=== PATIENT | female | born 2000 | race Caucasian/White ===

== ENCOUNTER 2024-08-14 11:27 | Emergency (ER) | payer MEDICAID, SELFPAY ==
[2024-08-14 11:28] VITALS: BMI 37.4
[2024-08-14 11:44] VITALS: BP 117/81; PULSE 117; RESP 18; TEMP 37.8; O2SAT 97; BMI 38.0
--- NOTE | 2024-08-14 11:53 | EDNOTE_ITS ---
Upper Respiratory Inf. RME/HPI General Chief Complaint: Dental/Oral/Throat Stated Complaint: Swelling of Tonsils, SOB, fever Time Seen by Provider: 08/14/24 11:31 Arrival date/time: 08/14/24 11:27 23-year-old female with no significant medical problems presents emergency department complaints of sore throat and fever patient for symptoms ongoing for last couple of days patient ports no chest pain or shortness of there are no other associated symptoms or aggravating factors no other modifying factors, patient denies taking medication before coming to ER today Limitations: no limitations Related Data Home Medications ?Medication ?Instructions ?Recorded ?Confirmed amoxicillin 875 mg-potassium 1 tab PO BID 08/07/20 08/07/20 clavulanate 125 mg tablet (Augmentin) Previous Rx's ?Medication ?Instructions ?Recorded ibuprofen 600 mg tablet 600 mg PO QID PRN pain #30 tabs 05/13/21 clindamycin HCl 150 mg capsule 450 mg (3 x 150 mg) PO TID 7 days 08/14/24 #63 caps ibuprofen 800 mg tablet 800 mg PO TID PRN pain #30 tabs 08/14/24 prednisone 10 mg tablet 30 mg (3 x 10 mg) PO BID 3 days 08/14/24 #18 tabs Allergies Allergy/AdvReac Type Severity Reaction Status Date / Time diphenhydramine Allergy Severe Anaphylaxis Verified 10/04/23 21:39 [From Benadryl Allergy] [place] And Derivatives Allergy Verified 04/08/23 06:27 Review of Systems Review of Systems Systems Reviewed: All systems reviewed, normal except as documented Constitutional Constitutional: Reports system reviewed and no additional complaints, except as documented, Denies fever(s) and Reports headache(s) Eyes Eyes: Reports system reviewed and no additional complaints, except as documented and Denies blurry vision ENT Ears, Nose, Mouth, and Throat: Reports system reviewed and no additional complaints, except as documented, Reports headache(s), Reports nasal congestion, Reports nasal discharge, Reports sore throat and Reports throat swelling Cardiovascular Cardiovascular: Reports system reviewed and no additional complaints, except as documented, Denies chest pain and Denies dyspnea Respiratory Respiratory: Reports system reviewed and no additional complaints, except as documented, Denies chest congestion, Denies cough and Denies dyspnea Gastrointestinal Gastrointestinal: Reports system reviewed and no additional complaints, except as documented and Denies abdominal pain Integumentary/Breasts Skin/Breast: Reports system reviewed and no additional complaints, except as documented and Denies rash Neurologic Neurologic: Reports system reviewed and no additional complaints, except as documented, Reports as per HPI and Reports headache(s) Allergic/Immunologic Allergic/Immunologic: Reports throat swelling Past Medical History Past Medical History CARDIAC: Negative Congestive Heart Failure RESPIRATORY: Negative Chronic Obstructive Pulmonary Disease (COPD) GENITOURINARY: Negative Renal Disease ENDOCRINE: Negative Diabetes Mellitus Type 1 or Diabetes Mellitus Type 2 Social History SMOKING STATUS: Former smoker SUBSTANCE USE: marijuana ED Exam General Limitations: Present no limitations General appearance: Present alert and in no apparent distress Head Head exam: Present atraumatic, normocephalic and normal inspection Eye Eye exam: Present normal appearance, PERRL and EOMI; Absent conjunctival injection ENT ENT exam: Present mucous membranes moist and other Expanded ENT Exam Mouth exam: Absent trismus Throat exam: Present tonsillar erythema, tonsillomegaly and tonsillar exudate; Absent R peritonsillar mass or L peritonsillar mass Neck Neck exam: Present normal inspection, full ROM and trachea midline Chest Chest inspection: Present normal inspection and symmetric chest wall rise Respiratory Respiratory exam: Present normal lung sounds bilaterally; Absent respiratory distress Cardiovascular Cardiovascular exam: Present regular rate, normal rhythm and normal heart sounds Abdominal Exam Abdominal exam: Present soft and normal bowel sounds; Absent distention, tenderness, guarding, rebound, rigidity, Miller's sign or tenderness at McBurney's Point Abdominal tenderness: Absent RUQ Extremities Exam Extremities exam: Present normal inspection and full ROM Back Exam Back exam: Present normal inspection and full ROM Neurological Exam Neurological exam: Present alert, oriented X3 and CN II-XII intact Psychiatric Psychiatric exam: Present normal affect and normal mood Skin Skin exam: Present warm, dry, intact and normal color Course Quality Measures none Orders Category Date Time Status Dexamethasone Inj [Decadron Inj] Med 08/14/24 11:51 Discontinued 10 mg IM X1 ONE Ibuprofen Susp [Motrin Susp] Med 08/14/24 11:51 Discontinued 800 mg PO X1 ONE Lidocaine 1% 20 ml [Xylocaine 1% 20 ML] Med 08/14/24 11:51 Discontinued 2.1 ml INFL X1 ONE cefTRIAXone [Rocephin] Med 08/14/24 11:51 Discontinued 1,000 mg IM X1 ONE Vital Signs Vital signs: Vital Signs Temperature 100.0 F 08/14/24 11:44 Pulse Rate 117 H 08/14/24 11:44 Respiratory Rate 18 08/14/24 11:44 Blood Pressure 117/81 08/14/24 11:44 Pulse Oximetry (%) 97 08/14/24 11:44 Oxygen Delivery Method Room Air 08/14/24 11:44 O2 saturation 97% room air within normal limits Upper Respiratory Infection MDM Narrative MDM Narrative:: 23-year-old female with no significant medical problems presents emergency department complaints of sore throat and fever patient for symptoms ongoing for last couple of days patient reports no chest pain or shortness of there are no other associated symptoms or aggravating factors no other modifying factors, patient denies taking medication before coming to ER today On exam patient does not appear ill or toxic in no acute distress On exam patient does have tonsillar erythema no evidence of peritonsillar abscess no discrete abscess noted Patient discharged home in no distress to follow-up with primary care doctor in the next 24 to 48 hours and for any worsening symptoms to return to the ER immediately Patient data External records reviewed:: [facility] previous records Clinical information provided by:: patient Social determinants that could affect healthcare access:: none Patient has the following chronic illnesses:: None How is presenting disease/condition affected by chronic disease/condition?: no chronic disease Evaluation data The following diagnostics were reviewed and interpreted by me:: other (specify) (N/A) Lab and/or radiology exams considered but not ordered:: Consider not ordered Interpretation Summary: N/A Medications / Prescriptions Medications or Prescriptions considered but not ordered:: Given Medication administrations:: Medication Administration History Discontinued Medications Ceftriaxone Sodium (Ceftriaxone Sod Inj 1,000 Mg Vial) 1,000 mg IM X1 ONE Stop: 08/14/24 11:52 Last Admin: 08/14/24 12:04 Dose: 1,000 mg Documented By: AJIT Dexamethasone Sodium Phosphate (Dexamethasone Sod Phos Inj 10 Mg/Ml Vial) 10 mg IM X1 ONE Stop: 08/14/24 11:52 Last Admin: 08/14/24 12:02 Dose: 10 mg Documented By: AJIT Ibuprofen (Ibuprofen Susp 100 Mg/5 Ml Udc) 800 mg PO X1 ONE Stop: 08/14/24 11:52 Last Admin: 08/14/24 11:59 Dose: 800 mg Documented By: AJIT Lidocaine HCl (Lidocaine Hcl 1% 20 Ml Vial) 2.1 ml INFL X1 ONE Stop: 08/14/24 11:52 Last Admin: 08/14/24 12:04 Dose: 2.1 ml Documented By: RD Given Consultations Consultation(s) initiated? (list below): No Diagnosis Upper Respiratory Differential Diagnosis: upper respiratory infection, otitis media, sinusitis, viral infection, bronchitis and pharyngitis Most likely diagnosis given after review of the tests above:: Viral illness Admission Indicated Admission indicated?: not indicated Admission Request Was there a request for admission?: No Disposition Plan Disposition Plan: Discharge Discharge Attestation Discharge Attestation: The patient and all family members were given an opportunity to ask questions and understood the discharge instructions. Discharge instructions specifically effects, indications for sooner follow up or return to the emergency department, and the expected course of current diagnosis. Patient condition: Stable Discharge Plan Plan Patient Disposition: HOME (Self Care) Disposition Comment: Stable Prescriptions/Referrals Prescriptions/Med Rec: New prednisone 10 mg tablet 30 mg PO BID 3 Days Qty: 18 0RF ibuprofen 800 mg tablet 800 mg PO TID PRN (Reason: pain) Qty: 30 0RF clindamycin HCl 150 mg capsule 450 mg PO TID 7 Days Qty: 63 0RF No Action ibuprofen 600 mg tablet 600 mg PO QID PRN (Reason: pain) Qty: 30 0RF amoxicillin-pot clavulanate [Augmentin] 875-125 mg Tablet 1 tab PO BID Problem List Clinical Impression: Acute tonsillitis Patient/Caregiver Discharge Instructions Education Materials: ED Tonsillitis (Child) Additional Instructions: Please return in 2 days for recheck for worsening symptoms or concerns return immediately Print Language: [place] Stand Alone Forms: Isabel Award Info., Patient Portal Info Letter PA/JUDITH Supervising Physician JONAH/JUDITH Supervising Physician: Dr [email or web address]
[2024-08-14] MEDS: IBUPROFEN SUSP 100 MG/5 ML UDC 800 MG PO (11:59)
[2024-08-14] MEDS: DEXAMETHASONE SOD PHOS INJ 10 MG/ML VIAL IM (12:02)
[2024-08-14] MEDS: LIDOCAINE HCL 1% 20 ML VIAL 2.1 ML INFL (12:04)
[2024-08-14] MEDS: cefTRIAXone SOD INJ 1,000 MG VIAL 1000 MG IM (12:04)
== END 2024-08-14 12:08 | disposition home or self-care (01) ==
LOC: SERX 12:15
PROVIDERS: Emergency Provider Emergency Medicine
DX: J03.90 Acute tonsillitis, unspecified (principal); Z87.891 Personal history of nicotine dependence
CPT/HCPCS: 96372; 99283; J0696; J1100; J3490; A9270

== ENCOUNTER 2024-08-24 17:13 | Emergency (ER) | payer MEDICAID, SELFPAY ==
[2024-08-24 17:14] VITALS: BMI 37.4
[2024-08-24 17:45] VITALS: BP 111/80; PULSE 88; RESP 18; TEMP 36.9; O2SAT 99
--- NOTE | 2024-08-24 17:53 | XR_ITS ---
Examination: Complete OB ultrasound, less than 14 weeks, transabdominal Date and time of exam: August 24, 2024 1806 hours INDICATIONS: Positive test at home today, vaginal bleeding beginning 2 days ago Technique: Obstetrical ultrasound images less than 14 weeks performed via transabdominal imaging Findings: Uterus 5.7 x 3.1 x 4.7 cm No uterine mass or intrauterine gestation Right ovary 2.9 cm arterial flow Left ovary 3.1 cm arterial flow IMPRESSION: No uterine mass or intrauterine gestation
--- NOTE | 2024-08-24 17:53 | PD.EDRME ---
Rapid Medical Screening Exam E Arrival date/time: 08/24/24 17:13 23-year-old female with no known medical history presents to the emergency room with a chief complaint of vaginal spotting. Patient is currently 5 weeks and is a G1, P0. Patient states she found out she was yesterday. I have greeted and performed a focused initial assessment of this patient. A comprehensive ED assessment and evaluation of the patient, analysis of all test results, and completion of the medical decision making process will be conducted by additional ED providers. Chief Complaint: Vaginal Bleeding Vital signs: Vital Signs Temperature 98.5 F 08/24/24 17:45 Pulse Rate 88 08/24/24 17:45 Respiratory Rate 18 08/24/24 17:45 Blood Pressure 111/80 08/24/24 17:45 Pulse Oximetry (%) 99 08/24/24 17:45 Oxygen Delivery Method Room Air 08/24/24 17:45 Vital signs reviewed by provider: Yes
[2024-08-24 18:57] LABS: Basophils # (Auto) 0.1 Thou/mm3 (0.0-0.2); Basophils % (Auto) 1 % (0-2.5); Eosinophils % (Auto) 0 % (0-10); Hematocrit 37.5 % (36.0-46.0); Hemoglobin 12.4 g/dL (12.0-16.0); Immature Granulocytes % (Auto) 0 % (0-0); Immature Granulocytes Auto 0.05 Thou/mm3 (0.00-0.00); Lymphocytes % (Auto) 24 % (10-50); Mean Corpuscular HGB Conc 33.1 g/dl (31.0-37.0); Mean Corpuscular Hemoglobin 28.8 pg (25.0-35.0); Mean Corpuscular Volume 87 fL (80-100); Monocytes # (Auto) 0.8 Thou/mm3 (0.0-0.8); Monocytes % (Auto) 7 % (0-12); Neutrophils # (Auto) 8.4 Thou/mm3 (1.8-7.7); Neutrophils % (Auto) 68 % (37-80); Nucleated Red Blood Cell % 0 /100 WBC (0); Platelet Count 422 Thou/mm3 (140-440); RDW Standard Deviation 39.7 fL (36.4-46.3); Red Blood Count 4.31 Miln/mm3 (4.00-5.20); White Blood Count 12.4 Thou/mm3 (3.6-11.0)
[2024-08-24 19:08] LABS: Alanine Aminotransferase 22 U/L (10-49); Albumin, Serum 4.4 gm/dL (3.5-5.0); Albumin/Globulin Ratio 1.4 (1.2-2.2); Alkaline Phosphatase 68 U/L (46-116); Anion Gap 10 (7-16); Aspartate Amino Transferase 11 U/L (0-34); BUN/Creatinine Ratio 18 Ratio (12-20); Beta HCG,Quantitative 40 mIU/mL (<5.0); Bilirubin,Total 0.4 mg/dL (0.3-1.2); Blood Urea Nitrogen 11 mg/dL (9-23); Carbon Dioxide 23.4 mMol/L (20.0-31.0); Chloride 104 mMol/L (98-107); Creatinine (Component) 0.6 mg/dL (0.6-1.3); Globulin 3.2 gm/dL (2.3-3.5); Glucose 70 mg/dL (74-106); Osmolality,Calculated 271 (275-295); Potassium 3.6 mMol/L (3.4-5.1); Sodium 137 mMol/L (136-145); Total Protein 7.6 gm/dL (5.7-8.2); eGFR > 60 See Note
[2024-08-24 19:49] LABS: Collection Type, Urine Clean Catch
[2024-08-24 20:18] LABS: Bacteria,Urine Rare; Bilirubin,Urine Negative (Negative); Blood,Urine 1+ (Negative); Color,Urine Colorless (Lt Yel-Yel); Glucose, Urine Negative (Negative); Ketones,Urine Negative (Negative); Leukocyte Esterase,Urine Positive (Negative); Nitrite,Urine Negative (Negative); Protein,Urine Negative (Neg - Trace); RBC,Urine 5 /hpf (0-3); Specific Gravity,Urine 1.008 (1.001-1.035); Squamous Epithelial Cell,Urine 18 /hpf (0-5); Urobilinogen,Urine Negative mg/dL (0.0-1.0); WBC,Urine 18 /hpf (0-5)
[2024-08-24 20:23] LABS: Clarity,Urine Hazy (Clear/Hazy)
[2024-08-24 20:26] VITALS: BP 121/76; PULSE 85; RESP 18; TEMP 37.1; O2SAT 98
--- NOTE | 2024-08-24 21:15 | EDNOTE_ITS ---
ED OB Contraction Preg RMI/HPI General Chief complaint: Vaginal Bleeding Stated complaint: 5WKS AND SPOTTING Time Seen by Provider: 08/24/24 21:12 Arrival date/time: 08/24/24 17:13 23 year old female present to emergency room with c/o of vaginal bleeding/spotting today. pt report is around 5 weeks . LOCATION: suprapubic SEVERITY: Symptoms are described as being severe with limitations on activities of daily living QUALITY: Symptoms are described as being cramping CONTEXT: The patient is unable to identify any inciting events. DURATION/TIMING: The symptoms started approximately one day ago and have been waxing/waning but always present without ever completely resolving. ASSOCIATED SYMPTOMS: The patient is unable to identify any other associated symptoms. MODIFYING FACTORS: The patient is unable to identify any alleviating or aggravating symptoms. PERTINENT ROS: denies trauma, denies domestic violence, no dysuria or hematuria, no orthostatic symptoms, no nausea or vomiting, no fevers, no anorexia, no diarrhea or constipation REVIEW OF SYSTEMS: See History of Present Illness - with the exception of those mentioned in the history of present illness, all other systems reviewed and reported as negative GENERAL: In general the patient is awake, interactive, in an emergency department gurney. HEAD/EYES/EARS/NOSE/THROAT: normo-cephalic, atraumatic, mucus membranes are moist, anicteric, palpebral conjunctiva is pink, trachea is midline. CARDIOVASCULAR: regular rate and regular rhythm, no murmurs, heart sounds are not distant, strong pulses in all four extremities that are equal and symmetric bilateral upper and lower extremities, normal capillary refill. CHEST/PULMONARY: normal chest rise and fall, good air movement, clear to auscultation bilaterally, normal inspiratory to expiratory ratios without evidence of respiratory distress. NECK: No midline/Paraspinal tenderness, no step off ROM/Strenght intact No Kernig and bruzinski sign. No trauma ABDOMEN: soft, not tender, no masses appreciated BACK: normal range of motion without pain. NEUROLOGICAL: cranio-facial features are symmetric, moves all four extremities equally without obvious limitations or weakness. EXTREMITY: no tenderness to palpation over the long bones or large joints of the bilateral upper and lower extremities, no joint swelling, no joint erythema, no signs of trauma, no unilateral leg swelling and no peripheral edema. SKIN: warm, dry, well-perfused, no jaundice, no rash, no telangiectasias or petechia. PSYCH: calm, cooperative, no evidence of psychosis or agitation RME / HPI RME / HPI Narrative: 08/24/24 17:13 23-year-old female with no known medical history presents to the emergency room with a chief complaint of vaginal spotting. Patient is currently 5 weeks and is a G1, P0. Patient states she found out she was yesterday. I have greeted and performed a focused initial assessment of this patient. A comprehensive ED assessment and evaluation of the patient, analysis of all test results, and completion of the medical decision making process will be conducted by additional ED providers. Related Data Home Medications ?Medication ?Instructions ?Recorded ?Confirmed amoxicillin 875 mg-potassium 1 tab PO BID 08/07/20 clavulanate 125 mg tablet (Augmentin) Previous Rx's ?Medication ?Instructions ?Recorded ibuprofen 600 mg tablet 600 mg PO QID PRN pain #30 t abs 05/13/21 ibuprofen 800 mg tablet 800 mg PO TID PRN pain #30 t abs 08/14/24 Allergies Allergy/AdvReac Type Severity Reaction Status Date / Time diphenhydramine (From Allergy Severe Anaphylaxis Verified 08/24/24 17:14 Benadryl Allergy) [place] And Derivatives Allergy Verified 08/24/24 17:14 Course Course Course Narrative: This patient presents with vaginal bleeding in the first trimester. DDX includes ectopic, IUP, threatened/inevitable , along with completed . Patient is HDS and without a history of coagulopathy or infectious sym ptoms. Doubt alternate acute emergent pathology. Plan: bHCG, +/- basic labs, type and screen, TVUS, reassess Quality Measures none Orders Category Date Time Status US OB <= 14 weeks fetus Stat Exams 08/24/24 17:53 Completed ABO/RH Type Stat Lab 08/24/24 18:28 Completed Beta HCG,Quantitative Stat Lab 08/24/24 18:28 Completed CBC Stat Lab 08/24/24 18:28 Completed CMP [Comprehensive Metabolic Panel] Stat Lab 08/24/24 18:28 Completed UA [Urinalysis] Stat Lab 08/24/24 18:48 Completed Vital Signs Vital signs: Vital Signs Temperature 98.5 F 08/24/24 17:45 Pulse Rate 88 08/24/24 17:45 Respiratory Rate 18 08/24/24 17:45 Blood Pressure 111/80 08/24/24 17:45 Pulse Oximetry (%) 99 08/24/24 17:45 Oxygen Delivery Method Room Air 08/24/24 17:45 Vaginal Bleeding Patient data External records reviewed:: None Clinical information provided by:: patient Social determinants that could affect healthcare access:: none Patient has the following chronic illnesses:: none How is presenting disease/condition affected by chronic disease/condition?: no chronic disease Evaluation data The following diagnostics were reviewed and interpreted by me:: lab results and radiology exam(s) Lab and/or radiology exams considered but not ordered:: none Interpretation Summary: us: Findings: Uterus 5.7 x 3.1 x 4.7 cm No uterine mass or intrauterine gestation Right ovary 2.9 cm arterial flow Left ovary 3.1 cm arterial flow IMPRESSION: No uterine mass or intrauterine gestation HC Urine most likely dirty specimens? Medications / Prescriptions Medications or Prescriptions considered but not ordered:: none Medication administrations:: none Consultations Consultation(s) initiated? (list below): No Diagnosis Vaginal Bleeding Differential Diagnosis: missed , threatened , dysfunctional uterine bleeding, menometrorrhagia, incomplete , ectopic without intrauterine , vaginal bleeding and other (UTI, ) Most likely diagnosis given after review of the tests above:: vaginal bleeding, Admission Indicated Admission indicated?: not indicated Admission Request Was there a request for admission?: No Disposition Plan Disposition Plan: Discharge Discharge Attestation Discharge Attestation: The patient and all family members were given an opportunity to ask questions and understood the discharge instructions. Discharge instructions specifically effects, indications for sooner follow up or return to the emergency department, and the expected course of current diagnosis. Patient condition: Stable Discharge Plan Plan Patient Disposition: HOME (Self Care) Health Concerns: return to ED or PCP in 2-3 days for repeat HCG levels Return to Ed if symptoms worsen Prescriptions/Referrals Prescriptions/Med Rec: No Action ibuprofen 600 mg tablet 600 mg PO QID PRN (Reason: pain) Qty: 30 0RF amoxicillin-pot clavulanate [Augmentin] 875-125 mg Tablet 1 tab PO BID ibuprofen 800 mg tablet 800 mg PO TID PRN (Reason: pain) Qty: 30 0RF Referrals: No Primary/Family,Physician [Primary Care Provider] - In 1 week Problem List Clinical Impression: Vaginal bleeding during Patient/Caregiver Discharge Instructions Education Materials: Bleeding During Early Print Language: [place] Stand Alone Forms: Isabel Award Info., Patient Portal Info Letter
== END 2024-08-24 21:19 | disposition home or self-care (01) ==
PROVIDERS: Nurse Practitioner Family; Emergency Provider Emergency Medicine
DX: O20.9 Hemorrhage in early pregnancy, unspecified (principal); Z3A.01 Less than 8 weeks gestation of pregnancy
CPT/HCPCS: 36415; 76801; 80053; 81001; 84702; 85025; 86900; 86901; 99284

== ENCOUNTER 2024-08-27 08:12 | Emergency (ER) | payer MEDICAID, SELFPAY ==
[2024-08-27 08:14] VITALS: BP 132/88; PULSE 99; RESP 16; TEMP 37; O2SAT 99
[2024-08-27 08:35] VITALS: BMI 36.6
--- NOTE | 2024-08-27 08:44 | XR_ITS ---
Examination: OB Transvaginal ultrasound of the pelvis, complete Technique: Transvaginal sonographic images pelvis performed using fraire scale imaging Exam date and time: August 27, 2024 0942 hrs. Indications: Vaginal bleeding and lower pelvic pain beginning 3 days ago Findings: Uterus 6.4 x 3.0 x 3.9 cm Endometrial sign 0.6 cm No uterine mass or intrauterine gestation Right ovary 3.1 cm arterial flow 17 mm follicular cyst smaller follicles Left ovary obscured by bowel gas Impression: Limited study No uterine mass or intrauterine gestation.
--- NOTE | 2024-08-27 09:43 | EDNOTE_ITS ---
<Statement entered by Naomi Paige MD - 08/30/24 07:14> As co-signing physician, I was present and available for consult prn. I concur with the plan and care as documented by the midlevel provider. ED OB Contraction Preg RMI/HPI General Chief complaint: Vaginal Bleeding Stated complaint: HEMORRHAGE Time Seen by Provider: 08/27/24 08:29 Source: patient Arrival date/time: 08/27/24 08:12 This is a 23-year-old female who presents to the emergency department and request for repeat hCG and ultrasound. She does report she is a 1 para 0 currently approximately 5 weeks . Reports that 2 weeks ago she began with light vaginal bleeding and cramping. She was evaluated in the emergency department a couple days ago and was told that she might be having a miscarriage she is requesting a repeat ultrasound and hCG due to inability to view IUP on her last ultrasound. Denies fever chills rigors no abdominal pain today, mild bleeding. Mode of arrival: ambulatory Related Data Home Medications ?Medication ?Instructions ?Recorded ?Confirmed amoxicillin 875 mg-potassium 1 tab PO BID 08/07/20 clavulanate 125 mg tablet (Augmentin) Previous Rx's ?Medication ?Instructions ?Recorded ibuprofen 600 mg tablet 600 mg PO QID PRN pain #30 t abs 05/13/21 ibuprofen 800 mg tablet 800 mg PO TID PRN pain #30 t abs 08/14/24 Allergies Allergy/AdvReac Type Severity Reaction Status Date / Time diphenhydramine (From Allergy Severe Anaphylaxis Verified 08/27/24 08:27 Benadryl Allergy) [place] And Derivatives Allergy Verified 08/27/24 08:27 Review of Systems Review of Systems Systems Reviewed: All systems reviewed, normal except as documented Narrative Review of Systems: Gen: No fever, no chills, no weight loss EYES: No discharge, no visual changes, no pain HEENT: No ear pain, no congestion, no sore throat PULM: No shortness of breath, no cough, no congestion CV: No chest pain, no dyspnea on exertion, no palpitations GI: No nausea, no vomiting, no diarrhea, no pain, no constipation : No frequency, no urgency, no dysuria Musc/skel: No joint pain, no back pain Skin: No rash Psyc: No hallucinations, no depression Heme/Lymph: No easy bleeding or bruising tendencies Neuro: No weakness, no headache ED Exam Narrative Physical exam: General: Sittiing in Exam table in no acute distress, answering questions appropriately HENT: normocephalic, atraumatic, EOMI, PERRLA, moist mucous membranes Chest: chest wall is nontender Cardiac: regular rate and rhythm, normal S1 and S2, no murmurs, rubs, or gallops, capillary refill ?2 seconds Pulmonary: clear to auscultation bilaterally, no wheezing, crackles, or rhonchi Abdominal: active bowel sounds, soft, nontender, nondistended Neuro: A&OX3, CN II-XII intact, sensation grossly intact bilaterally in UE and LE. Skin: no rashes, no ecchymosis Ext: no lower extremity edema Course Quality Measures none Orders Category Date Time Status US OB transvaginal Stat Exams 08/27/24 08:44 Completed Beta HCG,Quantitative Stat Lab 08/27/24 08:52 Completed CBC Stat Lab 08/27/24 08:52 Completed Comprehensive Metabolic Panel Stat Lab 08/27/24 08:52 Completed Vital Signs Vital signs: Vital Signs Temperature 98.6 F 08/27/24 08:14 Pulse Rate 99 08/27/24 08:14 Respiratory Rate 16 08/27/24 08:14 Blood Pressure 132/88 H 08/27/24 08:14 Pulse Oximetry (%) 99 08/27/24 08:14 Oxygen Delivery Method Room Air 08/27/24 08:14 Vaginal Bleeding MDM Narrative MDM Narrative: 23-year-old female evaluated in the emergency department for repeat hCG and ultr asound. Advised patient most likely miscarriage in progress. hCG has dropped from 40 down to 20 from her last visit. Very inconsistent for possible 5 weeks of gestation. An ultrasound transvaginal was repeated which did not demonstrate an IUP. Patient's CBC and CMP unremarkable. Rh status reviewed no RhoGAM needed. Advised to follow-up with her PCP, or COMPUTER SYSTEMS AUDITOR for follow-up care. Strict ER precautions given to return if there is any worsening symptoms, develop fever, rigors or change in condition. Patient data External records reviewed:: [facility] previous records Clinical information provided by:: patient Social determinants that could affect healthcare access:: none Patient has the following chronic illnesses:: none How is presenting disease/condition affected by chronic disease/condition?: no chronic disease Evaluation data The following diagnostics were reviewed and interpreted by me:: lab results and radiology exam(s) Lab and/or radiology exams considered but not ordered:: none Interpretation Summary: Examination: OB Transvaginal ultrasound of the pelvis, complete Technique: Transvaginal sonographic images pelvis performed using fraire scale imaging Exam date and time: August 27, 2024 0942 hrs. Indications: Vaginal bleeding and lower pelvic pain beginning 3 days ago Findings: Uterus 6.4 x 3.0 x 3.9 cm Endometrial sign 0.6 cm No uterine mass or intrauterine gestation Right ovary 3.1 cm arterial flow 17 mm follicular cyst smaller follicles Left ovary obscured by bowel gas Impression: Limited study No uterine mass or intrauterine gestation. Medications / Prescriptions Medications or Prescriptions considered but not ordered:: none Medication administrations:: none Consultations Consultation(s) initiated? (list below): No Diagnosis Vaginal Bleeding Differential Diagnosis: missed , threatened , dysfunctional uterine bleeding, menometrorrhagia, incomplete , ectopic without intrauterine , vaginal bleeding and other (UTI, ) Most likely diagnosis given after review of the tests above:: Miscarriage. Admission Indicated Admission indicated?: not indicated Admission Request Was there a request for admission?: No Disposition Plan Disposition Plan: Discharge Discharge Attestation Discharge Attestation: The patient and all family members were given an opportunity to ask questions and understood the discharge instructions. Discharge instructions specifically effects, indications for sooner follow up or return to the emergency department, and the expected course of current diagnosis. Patient condition: Stable Discharge Plan Plan Patient Disposition: HOME (Self Care) Patient condition on transfer: Stable Prescriptions/Referrals Prescriptions/Med Rec: No Action ibuprofen 600 mg tablet 600 mg PO QID PRN (Reason: pain) Qty: 30 0RF amoxicillin-pot clavulanate [Augmentin] 875-125 mg Tablet 1 tab PO BID ibuprofen 800 mg tablet 800 mg PO TID PRN (Reason: pain) Qty: 30 0RF Referrals: No Primary/Family,Physician [Primary Care Provider] - In 1 week Problem List Clinical Impression: Miscarriage Patient/Caregiver Discharge Instructions Discharge Activity: activity as tolerated Education Materials: Understanding Miscarriage ... Additional Instructions: Your ultrasound does not demonstrate a intrauterine . Your hCG has decreased from 40-20 which is not consistent with . It is very important that you follow-up with your [employer] P[employer]ER [employer] SHADER or primary doctor for follow-up. Return to the emergency department if you develop fever, chills rigors or severe abdominal pain. Print Language: Prydeinig Stand Alone Forms: Isabel Award Info., Patient Portal Info Letter PA/SECURITY SITE SUPERVISOR Supervising Physician PA/JUDITH Supervising Physician: Dr. Hanna
[2024-08-27 09:46] LABS: Basophils % (Auto) 0 % (0-2.5); Eosinophils % (Auto) 1 % (0-10); Hematocrit 38.9 % (36.0-46.0); Hemoglobin 12.9 g/dL (12.0-16.0); Immature Granulocytes % (Auto) 0 % (0-0); Immature Granulocytes Auto 0.02 Thou/mm3 (0.00-0.00); Lymphocytes % (Auto) 27 % (10-50); Mean Corpuscular HGB Conc 33.2 g/dl (31.0-37.0); Mean Corpuscular Hemoglobin 28.9 pg (25.0-35.0); Mean Corpuscular Volume 87 fL (80-100); Monocytes # (Auto) 0.5 Thou/mm3 (0.0-0.8); Monocytes % (Auto) 7 % (0-12); Neutrophils # (Auto) 4.8 Thou/mm3 (1.8-7.7); Neutrophils % (Auto) 65 % (37-80); Nucleated Red Blood Cell % 0 /100 WBC (0); Platelet Count 389 Thou/mm3 (140-440); RDW Standard Deviation 39.3 fL (36.4-46.3); Red Blood Count 4.47 Miln/mm3 (4.00-5.20); White Blood Count 7.4 Thou/mm3 (3.6-11.0)
[2024-08-27 10:04] LABS: Alanine Aminotransferase 22 U/L (10-49); Albumin, Serum 4.4 gm/dL (3.5-5.0); Albumin/Globulin Ratio 1.5 (1.2-2.2); Alkaline Phosphatase 68 U/L (46-116); Anion Gap 10 (7-16); Aspartate Amino Transferase 14 U/L (0-34); BUN/Creatinine Ratio 18 Ratio (12-20); Beta HCG,Quantitative 22 mIU/mL (<5.0); Bilirubin,Total 0.3 mg/dL (0.3-1.2); Blood Urea Nitrogen 11 mg/dL (9-23); Calcium 9.5 mg/dL (8.3-10.6); Calcium (Corrected) 9.5 mg/dL (8.5-10.1); Carbon Dioxide 23.5 mMol/L (20.0-31.0); Chloride 105 mMol/L (98-107); Creatinine (Component) 0.6 mg/dL (0.6-1.3); Estimated Creatinine Clearance 148.3 mL/min (>60); Globulin 2.9 gm/dL (2.3-3.5); Glucose 97 mg/dL (74-106); Osmolality,Calculated 275 (275-295); Potassium 4.5 mMol/L (3.4-5.1); Sodium 138 mMol/L (136-145); Total Protein 7.3 gm/dL (5.7-8.2); eGFR > 60 See Note
== END 2024-08-27 11:42 | disposition home or self-care (01) ==
PROVIDERS: Nurse Practitioner Primary Care; Emergency Provider Emergency Medicine
DX: O03.9 Complete or unspecified spontaneous abortion without complication (principal); N83.01 Follicular cyst of right ovary
CPT/HCPCS: 36415; 76817; 80053; 84702; 85025; 99284